=== PATIENT | female | born 1990 | race American Indian/Alaskan Native ===

== ENCOUNTER 2020-04-13 10:00 | Observation (INO) | payer MEDICAID ==
--- NOTE | 2020-04-13 11:44 | History and Physical Report ---
History of Present Illness Date of examination: 04/13/20 Chief complaint: retained placenta History of present illness: 29 yo G0212 (now A3) at 15w6d by LMP by HSV2, hx alcohol abuse, and hx cervical cerclage in previous s/p ROM on 04/12/2020 followed by delivery of fetus today AM in clinic (demise) transferred to hospital for definitive management of retained placenta, likely requiring surgical management. Past History Past Surgical History: no surgical history Family/Genetic History: none Social history: no significant social history - Obstetrical History : 4 Para: 3 Hx # Term Pregnancies: 0 Number of Pregnancies: 2 Spontaneous Abortions: 2 Number of Living Children: 2 Medications and Allergies Allergies Allergy/AdvReac Type Severity Reaction Status Date / Time No Known Allergies Allergy Unverified 04/13/20 10:50 - Physical Exam Abdomen: Positive: normal appearance, normal bowel sounds Uterus: Positive: enlarged Results All other labs normal. Assessment and Plan - Patient Problems (1) Retained placenta Status: Acute Plan to address problem: S/p delivery in clinic today, 04/13/2020 at [facility]. Placenta clamped at that time and transferred to hospital for further management --Consented and for D&C for retained placenta --Questions solicited and answered --Consented in the chart --Anticipate discharge home follow procedure
[2020-04-13] MEDS ORDERED: METHYLERGONOVINE MALEATE 0.2 MG/ML VIAL IM ONE (12:53)
[2020-04-13] MEDS ORDERED: SILVER NITRATE APPLICATOR 1 EA TP ONE ×2 (12:53→13:59)
[2020-04-13] MEDS ORDERED: LACTATED RINGERS 1,000 ML IV SCH (13:00)
[2020-04-13] MEDS ORDERED: LACTATED RINGERS 1,000 ML ONE (13:01)
[2020-04-13] MEDS ORDERED: fentaNYL 100 MCG/2 ML INJ IV PRN (13:03)
[2020-04-13] MEDS ORDERED: ONDANSETRON 4 MG/2 ML INJ IV PRN ×2 (13:03→15:00)
[2020-04-13] MEDS ORDERED: HYDROmorphone 1 MG/1 ML INJ IV PRN (13:03)
[2020-04-13] MEDS ORDERED: SODIUM CHLORIDE 0.9% 1000 ML 1,000 ML IV SCH (13:15)
--- NOTE | 2020-04-13 13:16 | Anesthesia Day of Surgery ---
Anesthesia Day of Surgery - Day of Surgery Patient Examined: Yes Patient H&P Reviewed: Yes Patient is NPO: Yes
--- NOTE | 2020-04-13 13:16 | Anesthesia Consultation ---
Anesthesia Consult and Med Hx Date of service: 04/13/20 - Airway Anesthetic Teeth Evaluation: Good ROM Head & Neck: Adequate Mental/Hyoid Distance: Adequate Mallampati Class: Class I Intubation Access Assessment: Good - Pulmonary Exam CTA: Yes - Cardiac Exam Cardiac Exam: RRR - Pre-Operative Health Status ASA Pre-Surgery Classification: ASA2, Emergency Proposed Anesthetic Plan: General - Pulmonary Hx Smoking: Yes (quit 15wks ago) Hx Respiratory Symptoms: No - Cardiovascular System Hx Hypertension: No Hx Heart Attack/AMI: No - Central Nervous System CVA: No - Gastrointestinal Hx Gastroesophageal Reflux Disease: No - Endocrine Hx Renal Disease: No Hx Liver Disease: No Hx Insulin Dependent Diabetes: No Hx Non-Insulin Dependent Diabetes: No Hx Thyroid Disease: No - Other Systems Hx Obesity: No - Additional Comments Anesthesia Medical History Comments: No hx anesthetic complications. S/p delivery of previable fetus now scheduled for emergent D&C. +N/V. Plan GETA. CBC, type and screen drawn. Blood consent signed.
[2020-04-13] MEDS ORDERED: LIDOCAINE MPF (2%) 20 MG/1 ML VIAL 5 ML ONE (13:21)
[2020-04-13] MEDS ORDERED: SUCCINYLCHOLINE CHLORIDE 200 MG/10 ML INJ MDV ONE (13:21)
[2020-04-13] MEDS ORDERED: propofoL 200 MG/20 ML VIAL IV ONE (13:22)
[2020-04-13 13:24] LABS: Hematocrit 40.5 % (30.3-42.9); Hemoglobin 13.7 gm/dl (10.1-14.3); Mean Corpuscular HGB Conc 34 % (30-34); Mean Corpuscular Volume 95 fl (79-97); Platelet Count 295 K/mm3 (140-440); Red Blood Count 4.25 M/mm3 (3.65-5.03); Red Cell Distribution Width 13.2 % (13.2-15.2)
[2020-04-13] MEDS ORDERED: GLYCOPYRROLATE 0.4 MG/2 ML INJ ONE (13:40)
[2020-04-13] MEDS ORDERED: PHENYLEPHRINE/NS 1,000 MCG/10 ML SYRINGE (OR USE) IV ONE (13:40)
[2020-04-13] MEDS ORDERED: ONDANSETRON 4 MG/2 ML INJ ONE ×2 (13:40→15:00)
[2020-04-13] MEDS ORDERED: dexAMETHasone 20 MG/5 ML VIAL ONE (13:40)
[2020-04-13] MEDS ORDERED: SODIUM CHLORIDE 0.9% IRR 1,000 ML BOTTLE IR ONE (13:59)
[2020-04-13] MEDS ORDERED: OXYTOCIN 20 UNIT/1000ML DRIP 20 UNITS/1,000 ML BAG IV SCH (14:00)
[2020-04-13] MEDS ORDERED: SCOPOLAMINE TRANSDERMAL PATCH 72 HR TD NR (14:00)
[2020-04-13] MEDS ORDERED: MIDAZOLAM 2 MG/2 ML INJ IV NR (14:00)
[2020-04-13 14:02] LABS: Band Neutrophils # (Manual) 0.2 K/mm3; Basophils % (Manual) 0 % (0.0-1.8); Eosinophils % (Manual) 0 % (0.0-4.3); Total Cells Counted 100
[2020-04-13 14:03] LABS: Anisocytosis 1+; Platelet Estimate Consistent w Auto
[2020-04-13] MEDS ORDERED: oxyCODONE /ACETAMINOPHEN 5-325MG TAB PO PRN (14:12)
[2020-04-13] MEDS ORDERED: IBUPROFEN 600 MG TAB PO PRN (14:12)
--- NOTE | 2020-04-13 14:19 | Procedure Note ---
Date of procedure: 04/13/20 Pre-op diagnosis: retained placenta Post-op diagnosis: same Procedure: Preoperative diagnosis: 1. Retained placenta Postoperative diagnosis: 1. Same Operation performed: 1. Examined under anesthesia 2. Ultrasound-guided dilation & curettage Surgeon: Evelia Pereira Anesthesia: General EBL: 700 cc UOP: 80 cc IVF: 2 L Pathology specimens: Uterine contents Complications: none Disposition and condition: To the PACU in stable condition then discharged home Findings: 1. 12-14 week size mobile uterus 2. Moderate amount of products of conception Statement of medical necessity: 29 yo at 15w6d by LMP woman who presents s/p delivery of fetus in clinic presenting with retained placenta. She desired surgical management. The procedure risk benefits, indications and alternatives reviewed patient. Description of operation: After informed consent, the patient was taken to the OR and placed in Esau stirrups after general anesthesia was administered. An exam under anesthesia was performed with the findings noted above. The vagina was prepped and draped in the usual sterile fashion. 80 cc urine output via straight catheterization of the bladder. A duckbill speculum was placed to visualize the cervix. A single-tooth tenaculum was placed onto the anterior cervical lip. Serial dilation of the cervix with Gray dilators was performed. The uterus was gently sounded to 9 centimeters. Suction was calibrated to 60 mmHg, and a 14 millimeters curette was gently advanced into the uterine cavity fundus. Suction was applied, and the curette was rotated to evacuate the uterus of products of conception. A sharp curettage was performed until a gritty texture was noted. Suction curettage was repeated to clear the remaining products of conception. Minimal bleeding was noted. The tenaculum was removed from the cervix with good hemostasis noted. Procedure was completed using a ultrasound before and after D&C. The speculum was removed. Patient tolerated the procedure well and was taken to recovery room in good condition. Anesthesia: GETA Surgeon: EVELIA PEREIRA JR Estimated blood loss: other (700cc) IV fluids: 2,000 Urine output: 80 Pathology: list (Retained placenta) Specimen disposition: to lab Condition: stable Disposition: same day
[2020-04-13] MEDS ORDERED: MEPERIDINE 25 MG/1 ML INJ ONE (14:37)
[2020-04-13] MEDS ORDERED: MEPERIDINE 25 MG/1 ML INJ IV PRN (14:38)
[2020-04-13 15:01] VITALS: BP 108/61
--- NOTE | 2020-04-13 15:53 | Post Anesthesia Evaluation ---
- Post Anesthesia Evaluation Patient Participated: Yes Airway Patent: Yes Stable Respiratory Function: Yes Nausea/Vomiting: No Temp > 96.8F: Yes Pain Manageable: Yes Adequeate Hydration: Yes Anesthesia Complications: No
== END 2020-04-13 15:30 | disposition home or self-care (01) ==
LOC: 3A 10:00 → UNDOADMIN 10:00 → OB 12:28 → INTOOBSV 12:28 → EDBD 12:28
PROVIDERS: ADMIT Obstetrics & Gynecology; ATTEND Obstetrics & Gynecology
DX: O72.0 Third-stage hemorrhage (principal)
CPT/HCPCS: 36415; 59812; 85025; 86850; 86900; 86901; 88305; 96361; 96374; 96375; 96376; G0378; G0379; J0330; J1100; J2175; J2250; J2370; J2405; J2704; J3010; J7120; 85007; J2210